=== PATIENT | male | born 1940 | race Caucasian/White ===

== ENCOUNTER 2017-06-17 11:18 | Inpatient (IN) | payer BC, MEDICARE ==
[~2017-06-17] VITALS: Ht 175.3 cm; Wt 75.3 kg
[~2017-06-17 11:18] MED LIST: ASPI81TA31 PO; ATEN50TA PO; ATOR40TA PO; CALC-555 PO; FENO145T20 PO; METF100P3 PO; VALS1TAB71 PO
[2017-06-17] MEDS ORDERED: HYDROCODONE/APAP 5-325MG TABLET PO ONE (11:45)
[2017-06-17] MEDS ORDERED: LIDOCAINE HCL 1% 20 ML VIAL IJ ONE (11:45)
--- NOTE | 2017-06-17 12:11 | NUR ---
Pt to CT, NAD noted at this time.
[2017-06-17] MEDS ORDERED: LIDOCAINE 1%-EPI 1:100,000 20 ML VIAL TP ONE (12:45)
--- NOTE | 2017-06-17 13:56 | NUR ---
daksha escobar talking to dr. leggett, neuro consult
--- NOTE | 2017-06-17 14:50 | NUR ---
ARCADIO FROM [facility] CALLED AND SAID THAT THE PT BE AT THE FASCILITY AT 1800. ARCADIO PHONE NUMBER IS [phone]. ARCDAIO WANTS THE MRI CHECK LIST BE DONE PRIOR TO TRANSFER. PT NEEDS AMBULANCE TO BE CALLED AT THE APPROPRIATE TIME.
--- NOTE | 2017-06-17 15:05 | NUR ---
Called [facility] for transport for MRI scheduled at 1800 at [facility], eta for pick up operator [id number].
[2017-06-17 15:28] LABS: BASOPHILS % (AUTO) 0.2 % (0.0-2.0); EOSINOPHILS # (AUTO) 0.2 K/uL (0.0-0.7); HEMATOCRIT 35.7 % (40-50); HEMOGLOBIN 11.8 G/DL (14.0-18.0); LYMPHOCYTES # (AUTO) 0.6 K/UL (0.8-4.8); LYMPHOCYTES % (AUTO) 3.8 % (20.5-51.5); MEAN CORPUSCULAR HGB CONC 33 g/dL (32.0-37.0); MEAN CORPUSCULAR VOLUME 87.6 FL (82.0-92.0); MONOCYTES % (AUTO) 6.3 % (0.0-11.0); NEUTROPHILS # (AUTO) 14.1 K/UL (1.8-8.9); NEUTROPHILS % (AUTO) 88.7 % (38.5-71.5); PLATELET COUNT (AUTO) 398 K/UL (150-450); RED BLOOD CELL COUNT(AUTO) 4.08 MIL/UL (4.7-6.1); WHITE BLOOD COUNT (AUTO) 15.9 K/UL (4.0-11.2)
[2017-06-17] MEDS ORDERED: MORPHINE SULFATE 4 MG/1 ML DISP.SYRIN IV ONE (15:30)
[2017-06-17] MEDS ORDERED: CEFAZOLIN 1 G in IV DEXTROSE 5% 50 ML IV ONE (15:30)
[2017-06-17] MEDS ORDERED: ONDANSETRON 4 MG/2 ML VIAL IV ONE (15:30)
[2017-06-17] MEDS ORDERED: CEFAZOLIN 1 G VIAL ONE (15:35)
[2017-06-17] MEDS ORDERED: MORPHINE SULFATE 4 MG/1 ML DISP.SYRIN ONE (15:35)
[2017-06-17] MEDS ORDERED: ONDANSETRON 4 MG/2 ML VIAL ONE (15:35)
--- NOTE | 2017-06-17 15:40 | NUR ---
Updated SBAR report given to Marcia via telephone and notified her of scheduled MRI at 1800 at [facility] and transport pecan picker time by [facility] at 1715.
--- NOTE | 2017-06-17 15:50 | NUR ---
Pt trans to room 210, NAD noted, family with pt.
[2017-06-17 15:51] LABS: ALANINE AMINOTRANSFERASE 26 U/L (16-63); ALKALINE PHOSPHATASE 22 U/L (50-136); ASPARTATE AMINOTRANSFERASE 38 U/L (15-37); BILIRUBIN,DIRECT 0.1 mg/dL (0.0-0.2); BILIRUBIN,TOTAL 0.4 mg/dL (0.2-1.0); CARBON DIOXIDE 26 mmol/L (21-32); CHLORIDE 98 mmol/L (98-107); GLUCOSE 152 mg/dL (74-106); POTASSIUM 3.7 mmol/L (3.5-5.1); TOTAL PROTEIN, SERUM 7.2 g/dL (6.4-8.2); UREA NITROGEN, BLOOD 22 mg/dL (7-18)
--- NOTE | 2017-06-17 16:00 | NUR ---
ADMITTED FROM HOME VIA ER WITH ADMITTING DX OF MECHANICAL FALL, NASAL AND C2 FX. ALERT AND ORIENTED X3. ROUTINE ADMISSION ASSESSMENT INITIATED SEEN BY DR WALL WITH ORDERS. CERVICAL BRACE IN PLACE, NO SIGNS OF DISTRESS.
[2017-06-17 16:04] LABS: BAND % (MANUAL) 8 % (0-10); EOSINOPHILS % (MANUAL) 2 % (0-8); LYMPHOCYTES % (MANUAL) 3 % (20-40); MONOCYTES % (MANUAL) 5 % (2-10); NEUTROPHILS % (MANUAL) 82 % (42-75)
[2017-06-17 16:06] VITALS: BP 149/72
[2017-06-17 16:54] LABS: *BILIRUBIN,URIN NEGATIVE (NEGATIVE); *BLOOD, URINE NEGATIVE (NEGATIVE); *CLARITY,URINE CLEAR (CLEAR); *COLOR,URINE YELLOW (YELLOW); *KETONES,URINE NEGATIVE (NEGATIVE); *PROTEIN,URINE 1+ (NEGATIVE); LEUKOCYTE ESTERASE ,URINE NEGATIVE (NEGATIVE); NITRITE, URINE NEGATIVE (NEGATIVE)
[2017-06-17 17:13] LABS: UGLUCOSE 1+ (NEGATIVE)
[2017-06-17 17:14] LABS: MUCUS,URINE MODERATE /LPF (0-FEW); WBC,URINE 0-3 /HPF (0-3)
[2017-06-17] MEDS ORDERED: TRAMADOL HCL 50 MG TABLET PO STA (18:03)
[2017-06-17] MEDS: IV 1/2NS 1000 ML 1,000 ML IV PRN ×2 (18:13→20:23)
--- NOTE | 2017-06-17 18:14 | NUR ---
TO [facility] FOR MRI AMBULANCE
[2017-06-17] MEDS: METFORMIN HCL 500 MG TABLET PO SCH (20:22)
[2017-06-17 20:52] VITALS: BP 152/86
[2017-06-17] MEDS ORDERED: ATORVASTATIN 40 MG TABLET PO SCH (21:00)
[2017-06-18] MEDS: TRAMADOL HCL 50 MG TABLET PO PRN ×2 (00:12→08:21)
[2017-06-18] MEDS ORDERED: TRAMADOL HCL 50 MG TABLET ONE (00:16)
[2017-06-18 01:46] VITALS: BP 173/96
[2017-06-18] MEDS ORDERED: ONDANSETRON 4 MG/2 ML VIAL IV PRN (02:15)
[2017-06-18] MEDS ORDERED: LORAZEPAM 2 MG/1 ML VIAL IV PRN (02:15)
[2017-06-18] MEDS ORDERED: CLONIDINE HCL 0.1 MG TABLET PO ONE (02:15)
--- NOTE | 2017-06-18 02:23 | NUR ---
RECEIVED PATIENT FROM [facility] JUST GOT DONE OF MRI SPINE. DAUGHTER WAS IN THE ROOM. ALERT AND ORIENTED X4 BUT FORGETFUL AT TIMES. STARTED ON REGULAR DIET, PATIENT HAD SMALL AMOUNT OF DINNER, GIVEN PILLS THEREAFTER. CHANGED WOUND DRESSING OVER FOREHEAD NO BLEEDING SEEN.COMPLAINT OF HEADACHE 04/17 GIVEN ULTRAM ORDERED. AT AROUND 0140 HRS, PATIENT GET OOB, AGITATED WITH BP 173/92 VOMITED ONCE. NOTED TO ROTARY PEEL OVEN TENDER, ORDERED AND GIVEN PRN ZOFRAN AND ATIVAN WITH ONCE DOSE OF CATAPRES.
[2017-06-18] MEDS ORDERED: CLONIDINE HCL 0.1 MG TABLET ONE (02:26)
[2017-06-18] MEDS ORDERED: LORAZEPAM 2 MG/1 ML VIAL ONE (02:27)
[2017-06-18] MEDS ORDERED: ONDANSETRON 4 MG/2 ML VIAL ONE (02:28)
[2017-06-18 02:49] VITALS: BP 140/72
--- NOTE | 2017-06-18 02:52 | NUR ---
BP DECREASED TO 140/72, PATIENT SLEEPING AT THIS TIME.
[2017-06-18 04:00] VITALS: BP 154/69
--- NOTE | 2017-06-18 07:06 | NUR ---
PATIENT WAS ABLE TO SLEEP AFTER 2AM UP TO THIS TIME. BP OF 146/75 AT 0400 HRS NO MORE EPISODE OF VOMITING AND AGITATION. OTHERWISE NO NEUROLOGIC PROBLEM OR PAIN COMPLAINT. ALL NEEDS ATTENDED.
--- NOTE | 2017-06-18 08:00 | NUR ---
SEEN BY DR. MERCEDES WITH ORDERS FOR DISCHARGE WITH [facility] AND ET FOLLOW UP, TECHNICAL ADMINISTRATIVE ASSISTANT MADE AWARE. FAMILY CONTACTED.
[2017-06-18] MEDS: METFORMIN HCL 500 MG TABLET PO SCH (08:16)
[2017-06-18] MEDS ORDERED: HYDROCHLOROTHIAZIDE 12.5 MG CAPSULE PO SCH (09:00)
[2017-06-18] MEDS ORDERED: ASPIRIN 81 MG TAB.CHEW PO SCH (09:00)
[2017-06-18] MEDS ORDERED: ATENOLOL 50 MG TABLET PO SCH (09:00)
[2017-06-18] MEDS ORDERED: VALSARTAN 160 MG TABLET PO SCH (09:00)
[2017-06-18] MEDS ORDERED: HOME MED MISCELLANEOUS PO SCH (09:00)
[2017-06-18] MEDS ORDERED: FENOFIBRATE NANOCRYSTALLIZED 145 MG TABLET PO SCH (09:00)
[2017-06-18 10:00] VITALS: BP 111/62
--- NOTE | 2017-06-18 11:10 | NUR ---
MEDICATION FOR HOME INSTRUCTION GIVEN BY PHARMACIST. PATIENT WAS DISCHARGED HOME IN STABLE CONDITION ACCOMPANIED BY
== END 2017-06-18 11:10 | disposition home health service (06) | DRG 517 ==
LOC: ER 11:18 → MED 15:46
PROVIDERS: ADMIT Family Medicine; ATTEND Family Medicine
PROC: 0HQ1XZZ Repair Face Skin, External Approach (ICD-10-PCS; principal; 2017-06-17)
PROC: 09QKXZZ Repair Nasal Mucosa and Soft Tissue, External Approach (ICD-10-PCS; 2017-06-17)
DX: S12.100A Unspecified displaced fracture of second cervical vertebra, initial encounter for closed fracture (principal); E11.65 Type 2 diabetes mellitus with hyperglycemia; G31.83 Neurocognitive disorder with Lewy bodies; I10 Essential (primary) hypertension; S01.21XA Laceration without foreign body of nose, initial encounter; S00.03XA Contusion of scalp, initial encounter; S02.2XXA Fracture of nasal bones, initial encounter for closed fracture; W01.0XXA Fall on same level from slipping, tripping and stumbling without subsequent striking against object, initial encounter; Y92.009 Unspecified place in unspecified non-institutional (private) residence as the place of occurrence of the external cause; Y93.9 Activity, unspecified; E78.5 Hyperlipidemia, unspecified; S01.81XA Laceration without foreign body of other part of head, initial encounter; F02.80 Dementia in other diseases classified elsewhere, unspecified severity, without behavioral disturbance, psychotic disturbance, mood disturbance, and anxiety; S40.011A Contusion of right shoulder, initial encounter
CPT/HCPCS: 36415; 70030-TC; 70450; 70486; 72125; 72141; 85025; 85730; 93005; A4217; A4663; J0690; J2060; J2270; J2405; J3490; J7030